=== PATIENT | female | born 2005 | race Caucasian/White ===

== ENCOUNTER 2024-05-15 11:27 | Emergency (ER) | payer OTHER ==
[2024-05-15] MEDS ORDERED: Acetaminophen 325 MG TAB ONE (11:54)
[2024-05-15] MEDS ORDERED: Ondansetron ODT 4 MG TAB ONE (11:54)
[2024-05-15] MEDS ORDERED: Metoclopramide 10 MG/10 ML UDCUP ONE (13:25)
== END 2024-05-15 14:46 | disposition home or self-care (01) ==
LOC: CSHERS 11:27
DX: S06.0X0A Concussion without loss of consciousness, initial encounter (principal); V80.010A Animal-rider injured by fall from or being thrown from horse in noncollision accident, initial encounter
CPT/HCPCS: 70450; 72125; Q0162